=== PATIENT | female | born 1985 | race Caucasian/White ===

== ENCOUNTER 2018-10-07 13:23 | Outpatient (CLI) | payer OTHER ==
[2018-10-07 13:30] VITALS: BP 123/68
== END 2018-10-07 16:07 | disposition home or self-care (01) ==
LOC: LDOP 13:23
PROVIDERS: ATTEND Obstetrics & Gynecology
DX: O46.8X3 Other antepartum hemorrhage, third trimester (principal); N93.9 Abnormal uterine and vaginal bleeding, unspecified; Z3A.30 30 weeks gestation of pregnancy
CPT/HCPCS: 76815; 81003; 87086; 87210; 87808; 99201; G0463

== ENCOUNTER 2019-03-18 07:31 | Emergency (ER) | payer OTHER ==
[~2019-03-18] VITALS: Ht 165.1 cm; Wt 85.7 kg
[~2019-03-18 07:31] MED LIST: DOCU-131 PO; IBUP-1223 PO; OXYC-302 PO; PREN1TAB10 PO
[2019-03-18] MEDS ORDERED: BIRTH CONTROL PO (07:53)
--- NOTE | 2019-03-18 08:29 | NUR ---
Pt resting on gurney connected to cardiac catheterization technologist, NIBP cuff, and continous pulse ox monitor. Call light within reach. NADN. No needs expressed at this time. Pt denies cp, sob, n/v/d, syncope, or trauma at this time.
[2019-03-18 08:33] LABS: BASOPHILS # (AUTO) 0.05 x10^3/uL (0-0.1); BASOPHILS % (AUTO) 1 % (0-1); EOSINOPHILS # (AUTO) 0.14 x10^3/uL (0-0.4); EOSINOPHILS % (AUTO) 3 % (1-7); LYMPHOCYTES # (AUTO) 1.74 x10^3/uL (1-3.4); LYMPHOCYTES % (AUTO) 38 % (22-44); MD NO; MEAN CORPUSCULAR HEMOGLOBIN 28.5 pg (27.0-34.8); MEAN CORPUSCULAR HGB CONC 33.8 g/dL (32.4-35.8); MEAN CORPUSCULAR VOLUME 84.2 fL (80-100); MEAN PLATELET VOLUME 8.2 fL (7.4-10.4); MONOCYTES # (AUTO) 0.32 x10^3/uL (0.2-0.8); MONOCYTES % (AUTO) 7 % (2-9); NEUTROPHILS # (AUTO) 2.38 x10^3/uL (1.8-6.8); NEUTROPHILS % (AUTO) 51 % (42-75); PLATELET COUNT 347 x10^3/uL (130-400); RED BLOOD COUNT 5.15 x10^6/uL (3.82-5.3); RED CELL DISTRIBUTION WIDTH 17.1 % (9.6-15.2)
[2019-03-18 08:41] LABS: ANION GAP 8 mmol/L (5-15); CALCIUM 8.8 mg/dL (8.5-10.1); CHLORIDE 108 mmol/L (98-107); CREATININE 0.75 mg/dL (0.55-1.02)
[2019-03-18 08:46] LABS: FREE T4 (FREE THYROXINE) 1.08 ng/dL (0.76-1.46); TROPONIN I < 0.015 ng/mL (0.000-0.045)
[2019-03-18 10:24] VITALS: BP 114/72
--- NOTE | 2019-03-18 10:34 | NUR ---
Patient given discharge instructions and they have confirmed that they understand the instructions. Patient ambulatory with steady gait. Pt left with d/c paperwork and all personal belongings.
== END 2019-03-18 10:36 | disposition home or self-care (01) ==
LOC: ED 09:28
DX: R00.2 Palpitations (principal); R53.1 Weakness; B34.9 Viral infection, unspecified
CPT/HCPCS: 36415; 71045; 80048; 82040; 83735; 84439; 84443; 84484; 85025; 93005; 99284